=== PATIENT | female | born 1975 | race Caucasian/White ===

== ENCOUNTER 2020-06-29 09:43 | Emergency (ER) | payer MEDICAID ==
[~2020-06-29] VITALS: Ht 149.9 cm; Wt 72.6 kg
[2020-06-29 09:43] VITALS: BP_SYST 126
[2020-06-29] MEDS ORDERED: ACETAMINOPHEN 500 MG TABLET PO ONE (10:15)
[2020-06-29] MEDS ORDERED: ACETAMINOPHEN 500 MG TABLET ONE (10:51)
[2020-06-29 10:59] LABS: BASOPHILS % (AUTO) 0.7 % (0.0-2.0); EOSINOPHILS % (AUTO) 0.6 % (0.0-4.0); HEMATOCRIT 39.7 % (36-48); HEMOGLOBIN 13.1 g/dL (12.0-16.0); LYMPHOCYTES # (AUTO) 0.9 K/uL (1.0-5.5); LYMPHOCYTES % (AUTO) 32.7 % (20.5-51.5); MEAN CORPUSCULAR HEMOGLOBIN 31 pg (27-31); MEAN CORPUSCULAR HGB CONC 33 % (32-36); MEAN CORPUSCULAR VOLUME 93 fL (79.0-98.0); MONOCYTES # (AUTO) 0.5 K/uL (0.0-1.0); MONOCYTES % (AUTO) 16.1 % (1.7-9.3); NEUTROPHILS # (AUTO) 1.4 K/uL (1.8-7.7); NEUTROPHILS % (AUTO) 49.9 % (40.0-70.0); PLATELET COUNT (AUTO) 246 K/uL (130-430); RED BLOOD CELL COUNT(AUTO) 4.25 MIL/uL (4.2-6.2); RED CELL DISTRIBUTION WIDTH 12.9 % (9.0-15.0); WHITE BLOOD COUNT (AUTO) 2.9 K/uL (4.8-10.8)
[2020-06-29 11:12] LABS: CALCIUM 8.3 mg/dL (8.4-11.0); CREATININE 0.55 mg/dL (0.55-1.30)
[2020-06-29 11:18] LABS: ALBUMIN 3.3 g/dL (3.4-4.8); TOTAL BILIRUBIN 0.3 mg/dL (0.0-1.0)
[2020-06-29] MEDS ORDERED: KETOROLAC TROMETHAMINE 15 MG VIAL IVP ONE (12:00)
[2020-06-29 12:20] VITALS: BP_SYST 126
== END 2020-06-29 12:22 | disposition left against medical advice (07) ==
LOC: SED 09:43
DX: U07.1 COVID-19 (principal); J06.9 Acute upper respiratory infection, unspecified
CPT/HCPCS: 36415; 70450; 71045; 80053; 81002; 81025; 83690; 84484; 85025; 93005; 96374; 99285; C9803; J1885; U0003

== ENCOUNTER 2020-10-16 12:35 | Emergency (ER) | payer MEDICAID ==
[~2020-10-16] VITALS: Ht 149.9 cm; Wt 70.8 kg
[2020-10-16 12:42] VITALS: BP_SYST 141
[2020-10-16 14:33] VITALS: BP_SYST 136
== END 2020-10-16 14:33 | disposition home or self-care (01) ==
LOC: SED 12:35
DX: S90.31XA Contusion of right foot, initial encounter (principal); Z88.1 Allergy status to other antibiotic agents; W22.8XXA Striking against or struck by other objects, initial encounter; Y93.89 Activity, other specified; Y92.89 Other specified places as the place of occurrence of the external cause; Y99.8 Other external cause status
CPT/HCPCS: 99283

== ENCOUNTER 2021-02-21 08:41 | Emergency (ER) | payer MEDICAID, SELFPAY ==
[~2021-02-21] VITALS: Ht 149.9 cm; Wt 70.3 kg
[2021-02-21 09:03] VITALS: BP_SYST 114
--- NOTE | 2021-02-21 09:09 | NUR ---
Patient triaged and placed in waiting room. VSS and patient appears in no acute distress at this time. Accompanied by Son, awaiting available bed, and MD notified of need for MSE.
--- NOTE | 2021-02-21 09:10 | NUR ---
Pt came into ER with complaint of MITCHELL 4/10 nasal congestion X1Day. Pt AAOX4 speaking full sentences no distress noted. VSS.
--- NOTE | 2021-02-21 09:37 | NUR ---
ER out to covid tent to examine pt.
[2021-02-21] MEDS ORDERED: OSEL75CA PO (09:51)
[2021-02-21 10:01] VITALS: BP_SYST 114
--- NOTE | 2021-02-21 10:02 | NUR ---
Patient given written and verbal discharge instructions and verbalizes understanding. ER MD discussed with patient the results and treatment provided. Patient in stable condition. ID arm band removed. Rx of Tamiflu given. Patient educated on pain management and to follow up with PMD. Pain Scale 0/10. Opportunity for questions provided and answered. Medication side effect fact sheet provided.
== END 2021-02-21 10:02 | disposition home or self-care (01) ==
LOC: SED 08:41
DX: B34.9 Viral infection, unspecified (principal); Z88.1 Allergy status to other antibiotic agents; Z79.899 Other long term (current) drug therapy
CPT/HCPCS: 99283

== ENCOUNTER 2022-03-16 08:50 | Emergency (ER) | payer MEDICAID ==
[~2022-03-16] VITALS: Ht 149.9 cm; Wt 73.0 kg
[~2022-03-16 08:50] MED LIST: OSEL75CA PO
[2022-03-16 08:58] VITALS: BP_SYST 123
--- NOTE | 2022-03-16 09:05 | NUR ---
BIBS WITH C/C OF WAKING UP THIS AM AND NOTED A SMALL LUMP TO LEFT TEMPORAL AREA LATERAL TO LEFT EYEBROW. REPORTS SHARP PAIN 8/10 THAT RADIATES AROUND AREA OF BUMP. DENIES ANY NUMBNESS, VISUAL DEFICITS. PT BELIEVES SHE MAY HAVE BEEN BIT BY A BUG. BUMP IS HARD AND PAINFUL TO TOUCH. NO SOURCE OF INSECT BITE NOTED. SLIGHT AREA OF REDNESS NOTED AT BUMP SITE. PT PLACED BACK INTO WAITING AREA PENDING DR. MAYA TO ASSESS.
--- NOTE | 2022-03-16 09:15 | NUR ---
ER at bedside examining patient.
--- NOTE | 2022-03-16 09:30 | NUR ---
Pt bib self from home CC Pain and swelling to left temporal. Pt notes woke up and noticed slight swelling r/t possible insect bite. No site of entry. Skin intact, aaox4. Pt c/o headache 03/03.
--- NOTE | 2022-03-16 09:45 | NUR ---
Patient given written and verbal discharge instructions and verbalizes understanding. ER MD discussed with patient the results and treatment provided. Patient in stable condition. ID arm band removed. Opportunity for questions provided and answered. Medication side effect fact sheet provided.
[2022-03-16] MEDS ORDERED: PRED50TA PO (10:01)
[2022-03-16] MEDS ORDERED: CEPH-548 PO (10:01)
[2022-03-16 10:20] VITALS: BP_SYST 123
== END 2022-03-16 10:20 | disposition home or self-care (01) ==
LOC: MERGE 08:50 → SED 08:50
DX: S00.86XA Insect bite (nonvenomous) of other part of head, initial encounter (principal); R22.0 Localized swelling, mass and lump, head; Z88.1 Allergy status to other antibiotic agents; Z79.899 Other long term (current) drug therapy; W57.XXXA Bitten or stung by nonvenomous insect and other nonvenomous arthropods, initial encounter; Y93.9 Activity, unspecified; Y92.89 Other specified places as the place of occurrence of the external cause; Y99.8 Other external cause status
CPT/HCPCS: 99283

== ENCOUNTER 2022-06-29 10:04 | Emergency (ER) | payer MEDICAID ==
[~2022-06-29] VITALS: Ht 149.9 cm; Wt 72.6 kg
[~2022-06-29 10:04] MED LIST changes: +CEPH-548 PO; +PRED50TA PO
[2022-06-29 11:54] VITALS: BP_SYST 135
--- NOTE | 2022-06-29 17:00 | NUR ---
Patient to ER bed H1 to gown for evaluation. Side rails up.
--- NOTE | 2022-06-29 17:05 | NUR ---
ER at bedside examining patient.
[2022-06-29] MEDS ORDERED: guaiFENesin/DEXTROMETHORPHAN 10 ML UDC ONE (17:19)
[2022-06-29] MEDS ORDERED: OSEL75CA PO (17:22)
[2022-06-29] MEDS ORDERED: GUAI5SYR PO (17:22)
[2022-06-29] MEDS ORDERED: IBUP-1971 PO (17:22)
[2022-06-29] MEDS: guaiFENesin/DEXTROMETHORPHAN 10 ML UDC PO ONE (17:33)
--- NOTE | 2022-06-29 17:35 | NUR ---
PT MEDICATED TOLERATED WELL.
--- NOTE | 2022-06-29 17:45 | NUR ---
Patient given written and verbal discharge instructions and verbalizes understanding. ER MD discussed with patient the results and treatment provided. Patient in stable condition. ID arm band removed. Rx of MOTARGENIS KRUSE DM,TAMIFLU given. Patient educated on pain management and to follow up with PMD. Pain Scale 0. Opportunity for questions provided and answered. Medication side effect fact sheet provided.
== END 2022-06-29 17:45 | disposition home or self-care (01) ==
LOC: SED 10:04
DX: J10.1 Influenza due to other identified influenza virus with other respiratory manifestations (principal); R05.9 Cough, unspecified; R09.81 Nasal congestion; Z88.1 Allergy status to other antibiotic agents; Z79.899 Other long term (current) drug therapy
CPT/HCPCS: 99283

== ENCOUNTER 2023-11-20 11:17 | Emergency (ER) | payer MEDICAID, OTHER ==
[~2023-11-20] VITALS: Ht 149.9 cm; Wt 70.8 kg
[~2023-11-20 11:17] MED LIST changes: +GUAI5SYR PO; +IBUP-1971 PO
[2023-11-20 11:23] VITALS: BP_SYST 123; PULSE 91; RESP 16; TEMP 98
[2023-11-20] MEDS ORDERED: AUG875 PO (11:51)
[2023-11-20 12:03] VITALS: BP_SYST 123; PULSE 91; RESP 16; TEMP 98
== END 2023-11-20 12:05 | disposition home or self-care (01) ==
LOC: SED 11:17
DX: J01.00 Acute maxillary sinusitis, unspecified (principal); J01.10 Acute frontal sinusitis, unspecified; Z88.1 Allergy status to other antibiotic agents
CPT/HCPCS: 99283